=== PATIENT | female | born 1970 | race Two or more races ===

== ENCOUNTER 2018-10-24 12:24 | Emergency (ER) | payer OTHER ==
[2018-10-24 12:56] VITALS: PULSE 96; TEMP 98.2; BMI 17.6
--- NOTE | 2018-10-24 13:15 | PDOC ---
History of Present Illness - General Chief Complaint: Respiratory Stated Complaint: cough runny nose Time Seen by Provider: 10/24/18 13:03 History Source: Patient Exam Limitations: No Limitations - History of Present Illness Initial Comments: 10/24/18 came for evaluation of persistent and worsening cough, fevers and chills, body aches. States onset was approximately 6 days ago and fever started approximately 4 days ago. States most of family is ill with same. However her cough is progressively worsened with a large amount of thick yellow-green phlegm. Has taken [id number] medications with minimal resolved. Timing/Duration: reports: getting worse, intermittent Severity: reports: mild, moderate Modifying Factors: improves with: coughing Associated Symptoms: reports: cough, earache, fever/chills, headache, nasal congestion, nasal drainage, sore throat Past History - Travel Traveled outside of the country in the last 30 days: No Close contact w/someone who was outside of country & ill: No - Past Medical History Allergies/Adverse Reactions: Allergies Allergy/AdvReac Type Severity Reaction Status Date / Time No Known Allergies Allergy Verified 10/24/18 12:53 Home Medications: Ambulatory Orders Azithromycin [Zithromax -] 250 mg PO UTDICT #6 tab 10/24/18 - Suicide/Smoking/Psychosocial Hx Smoking History: Never smoked Hx Alcohol Use: No Drug/Substance Use Hx: No Review of Systems - Review of Systems Able to Perform ROS?: Yes Is the patient limited [place] proficient: Yes Constitutional: Yes: Symptoms Reported, See HPI, Fever, Malaise HEENTM: Yes: Symptoms Reported, See HPI Respiratory: Yes: Symptoms reported (with pleuritic chest pain ), See HPI, Cough Cardiac (ROS): No: Symptoms Reported ABD/GI: Yes: See HPI, Nausea. No: Symptoms Reported Integumentary: Yes: Symptoms Reported, See HPI Neurological: Yes: Symptoms reported, See HPI, Headache *Physical Exam - Vital Signs Last Vital Signs Temp Pulse Resp BP Pulse Ox 98.2 F 96 H 18 175/94 H 99 10/24/18 12:54 10/24/18 12:54 10/24/18 12:54 10/24/18 12:54 10/24/18 12:54 - Physical Exam Comments: 10/24/18 13:18 GENERAL: [is awake, alert, and appropriately interactive.] EYES: [The pupils are equal, round, and reactive to light, with clear, conjunctiva.but glassy] NOSE: [The nose with clear drainage EARS: [The ear canals and tympanic membranes are congested but landmarks easily visualed ] THROAT: [The oropharynx is clear with erythema, no exudates. The mucous membranes are moist.] NECK: [The neck is supple with mildly tender adenopathy, no menigemous] CHEST: [The lungs are coarse but clear without crackles, or wheezes.] HEART: [Heart is regular rhythm, with normal S1 and S2, no murmurs.] ABDOMEN: [The abdomen is soft and nontender with normal bowel sounds. There is no organomegaly and no mass. There is no guarding or rebound.] EXTREMITIES: [Extremities are normal.] NEURO: [Behavior is normal for age.cranky but easily,m Tone is normal.] SKIN: [Skin is unremarkable without rash or swelling. There is no bruising, and there are no other signs of injury.] General Appearance: Yes: Nourished, Appropriately Dressed, Apparent Distress, Moderate Distress HEENT: positive: LESLIE, TMs Normal (just a but landmarks visualized), Pharynx Normal, Pharyngeal Erythema, Nasal Congestion, Rhinorrhea. negative: Normal ENT Inspection, Tonsillar Exudate Neck: positive: Supple, Lymphadenopathy (R), Lymphadenopathy (L) Respiratory/Chest: positive: Lungs Clear, Decreased Breath Sounds (no wheezing or retractions noted but breath sounds are very diminished) Gastrointestinal/Abdominal: positive: Normal Bowel Sounds, Soft. negative: Tender Extremity: positive: Tender Integumentary: positive: Dry, Warm, Pale Neurologic: positive: meat puller II-XII NML intact, Fully Oriented, Alert, Normal Mood/ Affect Moderate Sedation - Procedure Monitoring Vital Signs: Procedure Monitoring Vital Signs Temperature 98.2 F 10/24/18 12:54 Pulse Rate 96 H 10/24/18 12:54 Respiratory Rate 18 10/24/18 12:54 Blood Pressure 175/94 H 10/24/18 12:54 O2 Sat by Pulse Oximetry (%) 99 10/24/18 12:54 Progress Note - Progress Note Progress Note: Chest x-ray shows right middle lobe infiltrate which correlates clinically with patient therefore will start on azithromycin to cover bacterial infection although patient has probable influenza as well. Is outside window for Tamiflu. *DC/Admit/Observation/Transfer Diagnosis at time of Disposition: Bronchitis - Discharge Dispostion Disposition: HOME Condition at time of disposition: Stable Decision to Admit order: No - Prescriptions Prescriptions: Azithromycin [Zithromax -] 250 mg PO UTDICT #6 tab - Referrals Referrals: Sienna Ackerman MD [Primary Care Provider] - - Patient Instructions Printed Discharge Instructions: DI for Acute Bronchitis Additional Instructions: Rest, drink lots of fluids: Teas, water, soups, Pedialyte Saltwater gargles Steamy showers/seem to face break up mucus Avoid contact with others until fevers and cough resolved Lots of handwashing and good hygiene Continue [id number] medications for symptomatic relief Tylenol or Motrin for fever and pain Continue azithromycin as directed Followup with private physician in one to 2 days as needed Return to emergency department for worsened symptoms, fevers, dehydration Your blood pressure numbers here 175/94, repeated 154/91 - Post Discharge Activity Forms/Work/School Notes: Back to Work
[2018-10-24 13:35] VITALS: BP 154/91
== END 2018-10-24 14:02 | disposition home or self-care (01) ==
LOC: JERFT 12:24
DX: J40 Bronchitis, not specified as acute or chronic (principal)
CPT/HCPCS: 71046-TC-FY; 99281-25

== ENCOUNTER 2020-07-20 17:40 | Emergency (ER) | payer OTHER ==
[2020-07-20 18:10] VITALS: BMI 25.7
[2020-07-20] MEDS ORDERED: CEPHALEXIN MONOHYDRATE 500 MG CAPSULE (UD) PO ONE (18:39)
[2020-07-20] MEDS ORDERED: KETOROLAC TROMETHAMINE 60 MG/2 ML VIAL IM ONE (18:39)
[2020-07-20] MEDS ORDERED: CEPHALEXIN MONOHYDRATE 500 MG CAPSULE (UD) ONE (18:44)
[2020-07-20] MEDS ORDERED: KETOROLAC TROMETHAMINE 60 MG/2 ML VIAL ONE (18:44)
[2020-07-20 20:04] VITALS: BP 198/72; PULSE 82; TEMP 98.6
== END 2020-07-20 20:04 | disposition home or self-care (01) ==
LOC: JERFT 17:40 → JER 17:40 → JERFT 20:04
PROC: 3E0233Z Introduction of Anti-inflammatory into Muscle, Percutaneous Approach (ICD-10-PCS; principal; 2020-07-20)
DX: M25.522 Pain in left elbow (principal); R03.0 Elevated blood-pressure reading, without diagnosis of hypertension
CPT/HCPCS: 99284-25

== ENCOUNTER → 2024-05-29 | Day surgery (SDC) | payer OTHER | END | disposition home or self-care (01) | LOC: JMAMMO 13:49 → JRADUS-SUR 13:49 | PROVIDERS: ATTEND Nurse Practitioner Family | PROC: 0HBT3ZX Excision of Right Breast, Percutaneous Approach, Diagnostic (ICD-10-PCS; principal; 2024-05-29) | DX: C50.811 Malignant neoplasm of overlapping sites of right female breast (principal); Z17.0 Estrogen receptor positive status [ER+]; N63.15 Unspecified lump in the right breast, overlapping quadrants | CPT/HCPCS: 19083; 76942-TC; 77065-TC; 87899; 88305-TC; 88342-TC; A4648 ==

== ENCOUNTER → 2024-11-26 | Day surgery (SDC) | payer OTHER | END | disposition home or self-care (01) | LOC: JMAMMO-SUR 13:08 | PROVIDERS: ATTEND Surgery Surgical Oncology | PROC: BH00ZZZ Plain Radiography of Right Breast (ICD-10-PCS; principal; 2024-11-26) | DX: C50.911 Malignant neoplasm of unspecified site of right female breast (principal) | CPT/HCPCS: 19281; 19282; A4648; 78195-TC; A9541 ==

== ENCOUNTER 2024-11-27 07:21 | Day surgery (SDC) | payer OTHER ==
[2024-11-25 09:57] VITALS: BMI 27.9
[2024-11-27] MEDS ORDERED: LIDOCAINE HCL 1%, 10 MG/ML (20ML VIAL) ONE (07:28)
[2024-11-27] MEDS ORDERED: ISOSULFAN BLUE 50 MG/5 ML VIAL SQ ONE (07:28)
[2024-11-27] MEDS ORDERED: BUPIVACAINE HCL/PF 0.25% (2.5MG/ML) 10 ML VIAL ONE (07:28)
[2024-11-27] MEDS ORDERED: LIDOCAINE 1%/EPI 1:100000 (20 ML MULTI DOSE VIAL) ONE (07:28)
[2024-11-27] MEDS ORDERED: GUM MASTIC/STORAX/MSAL/ALCOHOL 1 DRP DROPSBTL MC ONE (07:29)
[2024-11-27] MEDS ORDERED: MIDAZOLAM HCL 2 MG/2 ML SINGLE DOSE VIAL ONE (07:37)
[2024-11-27] MEDS ORDERED: LIDOCAINE HCL/PF 2% SDV 5ML VIAL ONE (07:41)
[2024-11-27] MEDS ORDERED: PROPOFOL 40 ML ONE (07:41)
[2024-11-27] MEDS ORDERED: SUCCINYLCHOLINE CHLORIDE 200 MG/10 ML SYRINGE ONE (07:42)
[2024-11-27] MEDS ORDERED: BUPIVACAINE HCL/PF 0.5% (5MG/ML) 10 ML VIAL ONE (07:47)
[2024-11-27] MEDS ORDERED: ONDANSETRON 4 MG/2 ML VIAL ONE ×2 (08:35→09:23)
[2024-11-27] MEDS ORDERED: DEXAMETHASONE SOD PHOSPHATE 4 MG/1 ML VIAL ONE (08:35)
[2024-11-27] MEDS ORDERED: KETOROLAC TROMETHAMINE 30 MG/1 ML VIAL ONE (08:35)
[2024-11-27] MEDS ORDERED: PHENYLEPHRINE HCL 10 MG/1 ML SINGLE DOSE VIAL ONE (09:04)
[2024-11-27] MEDS ORDERED: ePHEDrine SULFATE 50 MG/1 ML AMPULE ONE (09:04)
[2024-11-27] MEDS: BUPIVACAINE HCL/PF 0.5% (5MG/ML) 10 ML VIAL IJ ONE (09:20)
[2024-11-27] MEDS ORDERED: ONDANSETRON 4 MG/2 ML VIAL IVPUSH PRN (09:49)
[2024-11-27] MEDS ORDERED: oxyCODONE HCL 5 MG TABLET PO PRN (09:49)
[2024-11-27] MEDS ORDERED: CLINDAMYCIN 900 MG PREMIX IVPB 900 MG/50 ML BAG IVPB ONE (09:51)
[2024-11-27] MEDS ORDERED: LACTATED RINGERS SOLUTION 1,000 ML IV SCH (10:00)
[2024-11-27 11:22] VITALS: RESP 16; TEMP 97.8
[2024-11-27 11:30] VITALS: BP 130/85; PULSE 90
== END 2024-11-27 11:51 | disposition home or self-care (01) ==
LOC: FASU 07:21
PROVIDERS: ATTEND Surgery Surgical Oncology
PROC: 0HBT0ZX Excision of Right Breast, Open Approach, Diagnostic (ICD-10-PCS; principal; 2024-11-27 08:42)
PROC: 07B50ZX Excision of Right Axillary Lymphatic, Open Approach, Diagnostic (ICD-10-PCS; 2024-11-27 08:42)
DX: C50.911 Malignant neoplasm of unspecified site of right female breast (principal); I10 Essential (primary) hypertension
CPT/HCPCS: 76098-TC-FY; 88307-TC; 88342-TC; 94760

== ENCOUNTER 2025-05-21 16:07 | Day surgery (SDC) | payer OTHER ==
[~2025-05-21 16:07] MED LIST: GOSERELIN ACETATE 3.6 MG IMPLANT SYRINGE SQ ONE; LIDOCAINE HCL 1%, 10 MG/ML (20ML VIAL) ID ONE
[2025-05-21 17:26] LABS: ABSOLUTE IMMATURE GRANULOCYTES 0.02 x10^3/uL (0.0-0.031); BASOPHILS # 0.03 x10^3/uL (0.01-0.08); EOSINOPHIL % 2.0 % (0.7-5.8); EOSINOPHILS # 0.11 x10^3/uL (0.04-0.36); MCHC 31.8 g/dl (32.2-35.5); MEAN CELL VOLUME 81.5 fl (79.4-94.8); MEAN PLT VOLUME 11.4 fl (9.4-12.3); MONOCYTE # 0.35 x10^3/uL (0.24-0.86); MONOCYTE % 6.5 % (4.7-12.5); RDW 14.7 % (12.3-16.6)
[2025-05-21] MEDS: LIDOCAINE HCL 1%, 10 MG/ML (20ML VIAL) ID ONE (17:37)
[2025-05-21] MEDS: GOSERELIN ACETATE 3.6 MG IMPLANT SYRINGE SQ ONE (17:37)
[2025-05-21 17:53] VITALS: TEMP 98.4
[2025-05-21 17:54] LABS: GLUCOSE,RANDOM 125 mg/dL (74-106); TOT PROT 7.5 g/dl (6.4-8.2)
[2025-05-21 17:55] LABS: CO2 28 mmol/L (21-32)
[2025-05-21 17:57] LABS: ALK PHOS 112 U/L (40-150)
[2025-05-21 17:59] LABS: SGPT/ALT 41 U/L (0-55)
[2025-05-21 18:00] LABS: CREATININE 0.78 mg/dL (0.55-1.3); SGOT/AST 29 U/L (5-34)
[2025-05-21 18:29] VITALS: BP 127/73; PULSE 91; RESP 18
[2025-05-23 12:06] LABS: LUTEINIZING HORMONE 39.3 mIU/mL (.)
== END 2025-05-21 18:57 | disposition home or self-care (01) ==
LOC: JONCCHEMO 16:07 → J7W 16:07 → JONCCHEMO 18:57
PROVIDERS: ATTEND Internal Medicine Hematology & Oncology
DX: Z51.11 Encounter for antineoplastic chemotherapy (principal); C50.111 Malignant neoplasm of central portion of right female breast; Z17.0 Estrogen receptor positive status [ER+]
CPT/HCPCS: 36415; 80053; 82085; 82306; 82378; 82550; 82670; 83001; 83002; 83735; 84703; 85025; 86038; 86300; 96402; J9202